=== PATIENT | female | born 1990 ===

== ENCOUNTER 2019-04-10 02:25 | Emergency (ER) | payer OTHER ==
[~2019-04-10] VITALS: Ht 152.4 cm; Wt 68.9 kg
[~2019-04-10 02:25] MED LIST: CEFTIN250 MG PO; KETO10TA2 PO
[2019-04-10] MEDS ORDERED: MEDROL8 MG PO (07:13)
[2019-04-10] MEDS ORDERED: BENADRYL ALLERG25 MG PO (07:13)
[2019-04-10] MEDS ORDERED: PEPCID40 MG PO (07:13)
== END 2019-04-10 04:56 | disposition home or self-care (01) ==
LOC: ER 02:25
DX: T78.3XXA Angioneurotic edema, initial encounter (principal)

== ENCOUNTER 2020-07-08 09:50 | Outpatient (CLI) | payer OTHER ==
[~2020-07-08 09:50] MED LIST changes: +BENADRYL ALLERG25 MG PO; +MEDROL8 MG PO; +PEPCID40 MG PO
== END 2020-07-08 10:07 | disposition home or self-care (01) ==
LOC: RAD 09:50
PROVIDERS: ATTEND Orthopaedic Surgery Orthopaedic Surgery of the Spine
DX: M41.84 Other forms of scoliosis, thoracic region (principal)